=== PATIENT | male | born 1980 | race Two or more races ===

== ENCOUNTER → 2018-03-19 | Emergency (ER) | payer SELFPAY ==
[~2018-03-19] VITALS: Ht 193 cm; Wt 94.3 kg
[~2018-03-19] MED LIST: TYLENOL EXTRA500 MG ORAL; ZYRTEC-D TABLE1 EACH ORAL
[2018-03-19 15:35] VITALS: BP 120/89
--- NOTE | 2018-03-19 15:45 | NUR ---
ED Nurse Note: pt walked into ED c/o flu like s/s for about a two weeks, pt denies fever. Pt AA&ox4, gcs=15, afebrile, skin warm and dry, resp even and unlabored, no cough, airway patent, -n/v/d, ambulates w/ steady gait, will continue to monitor.
--- NOTE | 2018-03-19 15:45 | NUR ---
ED Nurse Note: Pt discharge instruction provided w/ prescription, id band removed, pt education done via discussion and handout, pt verbalized understanding and agrees with plan, pt advised to follow up with pcp regarding pt's condition, pt advised to return to ed if s/s worsen or new s/s develop.
--- NOTE | 2018-03-19 16:30 | Emergency Room Report ---
History of Present Illness General Chief Complaint: Upper Respiratory Illness Source: Patient Present Illness HPI 37-year-old male presents emergency department complaining of 8 out of 10 in severity sore throat 2 weeks. Patient also reports intermittent nasal congestion and sneezing. Patient and eyes fevers, chills, neck pain/stiffness, headache or photophobia. Patient does report weak immune system as he just completed detox and is currently in [facility] Facility. Patient Reports That He Was Detoxing from Opiates. Patient Denies Recent Travel He Reports Many of the Other House-mates Are Sick As Well. The patient states that he is not up-to-date with his vaccination this year. He denies cough, palpitations, chest pain, shortness of breath, wheezing or body aches. Allergies: Coded Allergies: No Known Allergies (Unverified , 03/19/18) Patient History Past Medical History: see triage record Past Surgical History: none Pertinent Family History: none Reviewed Nursing Documentation: PMH: Agreed; PSxH: Agreed Nursing Documentation-PMH Past Medical History: No Stated History Review of Systems All Other Systems: negative except mentioned in HPI Physical Exam Vital Signs Date Time Temp Pulse Resp B/P (MAP) Pulse Ox O2 Delivery O2 Flow Rate FiO2 03/19/18 15:32 98.2 91 20 136/91 97 Room Air Sp02 EP Interpretation: reviewed, normal General Appearance: no apparent distress, alert, GCS 15, non-toxic Head: normocephalic, atraumatic Eyes: bilateral eye normal inspection, bilateral eye PERRL ENT: hearing grossly normal, normal pharynx, normal voice, uvula midline, moist mucus membranes, nasal congestion - swollen/ boggy turbinates, clear rhinorrhea, no purulence Neck: full range of motion, no meningismus, no bony tend Respiratory: chest non-tender, lungs clear, normal breath sounds, no respiratory distress, no accessory muscle use, no wheezing, speaking full sentences Cardiovascular #1: regular rate, rhythm Musculoskeletal: back normal, gait/station normal, normal range of motion, non- tender Neurologic: alert, oriented x3, responsive, motor strength/tone normal, sensory intact, speech normal, grossly normal Psychiatric: judgement/insight normal Skin: normal color, no rash, warm/dry, well hydrated Lymphatic: no adenopathy Medical Decision Making PA Attestation Dr. Dove is my supervising Physician whom patient management has been discussed with. Diagnostic Impression: Primary Impression: Rhinitis Qualified Codes: J31.0 - Chronic rhinitis Additional Impression: Viral pharyngitis ER Course 37-year-old male presents emergency department complaining of 8 out of 10 in severity sore throat 2 weeks. Patient also reports intermittent nasal congestion and sneezing. Patient and eyes fevers, chills, neck pain/stiffness, headache or photophobia. Patient does report weak immune system as he just completed detox and is currently in Rehabilitation Facility. Patient Reports That He Was Detoxing from Opiates. Patient Denies Recent Travel He Reports Many of the Other House-mates Are Sick As Well. The patient states that he is not up-to-date with his vaccination this year. He denies cough, palpitations, chest pain, shortness of breath, wheezing or body aches. Ddx considered but are not limited to: pharyngitis, strep, [employer]PECT[employer], ludwigs angina, URI, Rhinitis, PND, opiate w/d symptoms Vital signs: are WNL, pt. is afebrile H&PE are most consistent with: pharyngitis assumed to be viral. -- sneezing may be from allergies or from w/d from opiates. ORDERS: None required at this time as the diagnosis is clinical ED INTERVENTIONS: none required at this time. DISCHARGE: At this time pt. is stable for d/c to home. Will provide printed patient care instructions, and any necessary prescriptions. Care plan and follow up instructions have been discussed with the patient prior to discharge. Last Vital Signs Date Time Temp Pulse Resp B/P (MAP) Pulse Ox O2 Delivery O2 Flow Rate FiO2 03/19/18 15:35 91 18 Room Air 03/19/18 15:35 98.2 120/89 100 Disposition: HOME, SELF-CARE Condition: Stable Scripts Cetirizine Hcl/Pseudoephedrine (ZYRTEC-D TABLET) 1 Each Tab.er.12h 1 EACH ORAL Q12HR for 7 Days, #14 TAB Prov: Aisha Mckee 03/19/18 Acetaminophen* (TYLENOL EXTRA STRENGTH*) 500 Mg Tablet 500 MG ORAL Q6H, #30 TAB 0 Refills Prov: Aisha Mckee 03/19/18 Patient Instructions: Sore Throat, [id number] Additional Instructions: Take medications as directed. Follow up with a Primary Care Provider in 3-5 days, even if your symptoms have resolved. Return sooner to ED if new symptoms occur, or current symptoms become worse. - Please note that this Emergency Department Report was dictated using [employer] master analyst technology software, occasionally this can lead to erroneous entry secondary to interpretation by the dictation equipment. Aisha Mckee Mar 19, 2018 16:30
[2018-03-19 17:10] VITALS: BP 119/88
== END | disposition home or self-care (01) ==
LOC: EMR 17:25
DX: J31.0 Chronic rhinitis (principal); J02.8 Acute pharyngitis due to other specified organisms; B97.89 Other viral agents as the cause of diseases classified elsewhere
CPT/HCPCS: 99282